=== PATIENT | female | born 1995 | race Caucasian/White ===

== ENCOUNTER 2017-06-21 07:09 | Inpatient (IN) | payer OTHER ==
[~2017-06-21] VITALS: Ht 167.6 cm; Wt 98.9 kg
[2017-06-21] MEDS ORDERED: PRENATAL 19 TA1 EAC1 PO (09:21)
[2017-06-21] MEDS ORDERED: FOLGARD TABLET1 EACH PO (09:22)
== END 2017-06-23 15:32 | DRG 767 ==
LOC: OB/GYN 07:09 → LDR 07:09 → OB/GYN 17:00
PROC: 10E0XZZ Delivery of Products of Conception, External Approach (ICD-10-PCS; principal; 2017-06-21)
PROC: 0KQM0ZZ Repair Perineum Muscle, Open Approach (ICD-10-PCS; 2017-06-21)
PROC: 4A1HXCZ Monitoring of Products of Conception, Cardiac Rate, External Approach (ICD-10-PCS; 2017-06-21)
PROC: 4A033R1 Measurement of Arterial Saturation, Peripheral, Percutaneous Approach (ICD-10-PCS; 2017-06-21)
PROC: 0UL70ZZ Occlusion of Bilateral Fallopian Tubes, Open Approach (ICD-10-PCS; 2017-06-22)
DX: O70.1 Second degree perineal laceration during delivery (principal); Z37.0 Single live birth; Z3A.39 39 weeks gestation of pregnancy; Z30.2 Encounter for sterilization

== ENCOUNTER 2020-01-16 21:44 | Inpatient (IN) | payer OTHER ==
[~2020-01-16] VITALS: Ht 167.6 cm; Wt 78.5 kg
[~2020-01-16 21:44] MED LIST: FOLGARD TABLET1 EACH PO; PRENATAL 19 TA1 EAC1 PO
== END 2020-01-22 10:31 | disposition home or self-care (01) | DRG 600 ==
LOC: MEDI 21:44 → MEDJ 01-20 17:42
PROVIDERS: ADMIT Internal Medicine; ATTEND Internal Medicine
PROC: 4A033R1 Measurement of Arterial Saturation, Peripheral, Percutaneous Approach (ICD-10-PCS; 2020-01-16)
PROC: BB24Y0Z Computerized Tomography (CT Scan) of Bilateral Lungs using Other Contrast, Unenhanced and Enhanced (ICD-10-PCS; principal; 2020-01-17)
PROC: 3E0F7GC Introduction of Other Therapeutic Substance into Respiratory Tract, Via Natural or Artificial Opening (ICD-10-PCS; 2020-01-17)
PROC: 8E0ZXY6 Isolation (ICD-10-PCS; 2020-01-17)
PROC: 3E0F7GC Introduction of Other Therapeutic Substance into Respiratory Tract, Via Natural or Artificial Opening (ICD-10-PCS; 2020-01-17)
PROC: B24BZZZ Ultrasonography of Heart with Aorta (ICD-10-PCS; 2020-01-18)
DX: N61.1 Abscess of the breast and nipple (principal); J15.7 Pneumonia due to Mycoplasma pneumoniae; B95.62 Methicillin resistant Staphylococcus aureus infection as the cause of diseases classified elsewhere; R50.9 Fever, unspecified; I08.1 Rheumatic disorders of both mitral and tricuspid valves; R06.02 Shortness of breath; Z03.818 Encounter for observation for suspected exposure to other biological agents ruled out